=== PATIENT | male | born 1965 | race Caucasian/White ===

== ENCOUNTER 2025-01-15 18:16 | Outpatient (REF) | payer OTHER, SELFPAY ==
[2025-01-15 18:36] LABS: Appearance Urine Clear; Color Urine Yellow; Glucose Urine UA >=1000 mg/dL (Negative); Leukocyte Esterase Urine Negative (Negative); Nitrite Urine Negative (Negative); PH 7.5 (5.0-9.0); Specific Gravity - Urine >= 1.030 (1.005-1.025); UMIC TRIGGER UACC YES; Urine Blood Negative (Negative); Urine Ketones 15 mg/dL (Negative); Urine Protein Negative (Neg-Trace)
[2025-01-15 18:42] LABS: Bacteria Urine None Seen (None Seen); Hyaline Casts Urine 0-2 /LPF (0-2); RBC Urine 0-2 /HPF (0-2); Squamous Epithelial Cell Urine 0-2 /HPF (0-2); WBC Urine 0-5 /HPF (0-5)
== END 2025-01-15 18:17 | disposition home or self-care (01) ==
LOC: HO.HHCLNP 18:16
PROVIDERS: Visit Provider Student in an Organized Health Care Education/Training Program
DX: R30.0 Dysuria (principal)
CPT/HCPCS: 81001

== ENCOUNTER 2025-05-14 09:34 | Outpatient (REF) | payer OTHER, SELFPAY ==
--- OUTSIDE RECORDS SUMMARY | 2025-05-14 11:02 | XMS_ITS | Encounter Summary ---
Author Organization [employer] Address [address] [place] [address] [address] [place] [address] Care Team Providers Care Service Captain Name Role Phone Iliana Oquendo MD Primary Care Pro vider Reason for Visit * Reason Onset Date Comments Appointment Request 10/03/2024 Encounter Details Date Type Department Care Team ([facility] st Contact Info) Description 10/03/2024 Telephone [facility] MEDICINE [address] [place], [place] [phone] Mark Harrison MD [address] [place], [place] [phone] Appointment Request Social History Tobacco Use Types Packs/Day Years Used Date Smoking Tobacco: Never Assessed Sex and Gender Information Value Date Recorded Sex Assigned at Male 01/14/2025 12:28 PM EDT Legal Sex Male 5:35 PM EDT Gender Identity Male 01/15/2025 8:57 AM EDT Sexual Orientation Straight 01/15/2025 8: 57 AM EDT documented as of this encounter Miscellaneous Notes * Telephone Encounter - Mar Santamaria - 10/07/2024 8:32 AM EDT Patient added to [facility] New Patient wait list as 10-07-24 * Telephone Encounter - Yovanny Alfaro - 10/03/2024 3:49 PM EST TC from caller requesting NEW PATIENT visit . DX : Hyperglycemia Influenza A Medical Concern: Uncontrolled Diabetes Insurance name : [employer] Location : No prefrence Demographic information updated Contact pt at [phone] documented in this encounter Plan of Treatment Upcoming Encounters Date Type Department Care Team (Late st Contact Info) Description 05/22/2025 9:30 AM EDT Office Visit [facility] MEDICINE [address] [place] [address] [phone] Iliana Oquendo MD [address] [place] [address] [phone] documented as of this encounter Visit Diagnoses Not on filedocumented in this encounter Care Teams Service Captain Relationship Specialty Start Date End Date Iliana Oquendo MD [address] [place] [address] [phone] PCP - General Internal Medicine 01/15/25 documented as of this encounter
--- OUTSIDE RECORDS SUMMARY | 2025-05-14 11:02 | XMS_ITS | Clinical Summary ---
Author Organization [employer] Address [address] [facility] 7t [place] [address] Care Team Providers Care Hospice Executive Director Name Role Phone Iliana Oquendo MD Primary Care Pro vider Allergies No known active allergies Medications * This document contains information received from the source organization and may not represent a complete record from that organization. Insulin Pen Needle (pen needle 12/13 ) 31G X 8 mm misc Use as instructed 100 each 12 5 01/16/20 26 Active insulin lispro (HumaLOG) 100 UNIT/ML injection For glucose: > 150 to 200 2 units, 201 to 250 4u, 251 to 300 6u ,more than 300 8 u 1 each 3 5 Active glucose blood (FreeStyle Precision Matthew Test) test strip Use to test blood sugar 4 times a day 100 each 5 03/19/20 26 Active Continuous Glucose Sensor (FreeStyle Estrellita 3 Plus Sensor) misc 1 each every 15 days. Apply 1 every 15 days as directed for CGM Use to test blood sugar 4 times a day 2 each 5 Active Continuous Glucose Larriman Helper (FreeStyle Estrellita 3 [place]) device 1 each Once per day. Use as directed for CGM-Use to test blood sugar 4 times a day 1 each 5 Active FreeStyle lancets 1 each by Other route 4 times daily. 100 each 5 5 03/19/20 26 Active Alcohol Swabs (Alcohol Pads) 70 % pads Use to test blood sugar 4 times a day 100 each 5 Active metFORMIN (Glucophage) 500 MG tablet Take 1 tablet (500 mg) by mouth with breakfast and with evening meal. 180 tablet Active atorvastatin (Lipitor) 20 MG tablet Take 1 tablet (20 mg) by mouth Once per day. 90 tablet 5 03/19/20 26 Active insulin glargine (Lantus) 100 UNIT/ML pen Inject 20 Units under the skin in the morning. 3 mL 3 5 03/19/20 26 Active clotrimazole-be tamethasone (Lotrisone) cream Apply topically 2 times daily for 28 days. 15 g 5 04/16/20 25 Active Problems Problem Noted Date Diagnosed Date HLD (hyperlipidemia) 03/19/2025 Diabetes mellitus type 2, insulin dependent 12/29 Health care maintenance 01/16/2025 Dermatitis 01/16/2025 Depression with anxiety 01/16/2025 History of tobacco use 01/16/2025 Moderate major depression (CMS/HCC) 01/15/2025 Assessment & Plan (01/17/2025 2:19 PM EDT): During [facility] Consult Juan Jose presenting with depressed mood, Tearful, crying spells , hopelessness, irritable mood, loss of interests/pleasure , sense of isolation/loneliness , isolating, changes in sleep difficulty falling asleep and difficulty staying asleep , fatigue/loss of energy, worthlessness; for a period of 6-12 mo, for most or all symptoms in the context of financial concern, illness or family illness, and housing. Juan Jose reported his depression is baseline and shared he successfully overcame substance misuse in the past. Currently, he is facing acute personal stressors (lack of housing and medical condition worsening) which is leading to an increase of sxs. Pt declined services at this time. Information provided for [facility] centers and [facility] department in case patient changes his mind. History of substance use disorder 01/15/2025 Assessment & Plan (01/17/2025 2:19 PM EDT): During [facility] Consult Juan Jose presenting with depressed mood, Tearful, crying spells , hopelessness, irritable mood, loss of interests/pleasure , sense of isolation/loneliness , isolating, changes in sleep difficulty falling asleep and difficulty staying asleep , fatigue/loss of energy, worthlessness; for a period of 6-12 mo, for most or all symptoms in the context of financial concern, illness or family illness, and housing. Juan Jose reported his depression is baseline and shared he successfully overcame substance misuse in the past. Currently, he is facing acute personal stressors (lack of housing and medical condition worsening) which is leading to an increase of sxs. Pt declined services at this time. Information provided for [facility] centers and [facility] department in case patient changes his mind. Housing insecurity 01/15/2025 Resolved Problems Problem Noted Date Diagnosed Date Resolved Date Abdominal pain 01/16/2025 03/19/2025 Dysuria 01/16/2025 03/19/2025 Hyperglycemia 09/30/2024 03/19/2025 Encounters Date Type Department Care Team Description 04/15/2025 Telephone [facility] MEDICINE [address] [place] [phone] Angie Caceres RNcook boat 04/11/[address] [phone] Iliana Oquendo MD Medication Question 04/02/[address] [phone] Iliana Oquendo MD Prior Authorization 03/28/[address] [phone] Iliana Oquendo MD Prior Authorization (Insulin lispro) 03/19/2025 9:00 AM EDT Office Visit [address] [phone] Iliana Oquendo MD Hyperlipidemia, unspecified hyperlipidemia type (Primary Dx); Encounter for immunization; Type 2 diabetes mellitus without complication, with long-term current use of insulin ([facility]); Dietary counseling; Exercise counseling; Diabetes mellitus type 2, insulin dependent ([facility]); Health care maintenance; Dermatitis 03/19/[address] [phone] Iliana Oquendo MD Call Back Request 03/19/2025 Travel 03/18/2025 Telephone [facility] MEDICINE [address] [place] [address] Iliana Oquendo MD Chart Prep 03/18/2025 Telephone [facility] MEDICINE [address] [facility] [place] [address] Iliana Oquendo MD chart prep from Last 3 Months Immunizations Immunization Administration Dates Next Due Influenza injectable quadrivalent preservative f ree 05/19/2015 Influenza, seasonal, injectable, preservative fr ee 10/02/2024 Pneumococcal Conjugate PCV 20 03/19/2025 Tdap 01/15/2025,05/19/2015 Family History Medical History Relation Name Comments Prostate cancer Father Liver cancer Maternal Grandmother Thyroid disease Mother DM2 Paternal Grandmother Relation Name Status Comments Father Maternal Grandmother Mother Paternal Grandmother Social History Tobacco Use Types Packs/Day Years Used Date Smoking Tobacco: Former Cigarettes Passive Smoke Exposure: Never Smokeless Tobacco: Never Tobacco Cessation:Counseling Given: Not Answered Comments:Started smoking 16 y until his 37 y of age -smoked for 21 years and stopped now 22 years . Used to smoke 1 PQT a year Calc 21 PAQ a year, given stopped > 15 y ago no rec for lung ca screening Alcohol Use Standard Drinks/Week Comments Not Currently 0 (1 standard drink = 0.6 oz pur e alcohol) Depression Answer Date Recorded Patient Health Questionnaire-9 Score 10 01/15/2025 Patient Health Questionnaire-9 Score 10 01/15/2025 Last PHQ-9: Questionnaire Data Not on file 0 01/15/2025 Housing Stability Answer Date Recorded What is your housing situation today? I have darlene gaytan 01/15/[address] you li ve. Do you have problems with any of the following? None of the above 01/15/2025 Food Insecurity Answer Date Recorded Within the past 12 months, y ou worried that your food would run out before you got money to buy more: Never True 01/15/2025 Within the past 12 months,th e food you bought just didn't last and you didn't have enough money to get more: Never True Transportation Answer Date Recorded In the past 12 months, has l ack of transportation kept you from medical appts, meetings, work or from getting things needed for daily living? No 01/15/2025 Utilities Answer Date Recorded In the past 12 months, has t he electric, gas, oil or water company threatened to shut off services in your home? No 01/15/2025 Depression Answer Date Recorded Patient Health Questionnaire-2 Score 3 01/15/2025 Internet Access Answer Date Recorded Internet Access Q1 Yes 01/15/2025 Internet Access Q2 Not on file 01/15/2025 Sex and Gender Information Value Date Recorded Sex Assigned at Male 01/14/2025 12:28 PM EDT Legal Sex Male 5:35 PM EDT Gender Identity Male 01/15/2025 8:57 AM EDT Sexual Orientation Straight 01/15/2025 8: 57 AM EDT Last Filed Vital Signs Vital Sign Reading Time Taken Comments Blood Pressure 126/74 03/19/2025 9:07 AM EDT Pulse 82 03/19/2025 9:07 AM EDT Temperature 36.2 C (97.1 F) 03/19/2025 9:07 AM EDT Respiratory Rate 20 03/19/2025 9:07 AM EDT Oxygen Saturation 100% 03/19/2025 9:07 AM EDT Inhaled Oxygen Concentration - - Weight 73.8 kg (162 lb 9.6 oz) 03/19/2025 9:07 A M EDT Height 170.2 cm (5' 7 ) 03/19/2025 9:07 AM EDT Body Mass Index 25.47 03/19/2025 9:07 AM EDT Plan of Treatment Upcoming Encounters Date Type Department Care Team (Late st Contact Info) Description 05/22/2025 9:30 AM EDT Office Visit [facility] MEDICINE [address] [place] [phone] Iliana Oquendo MD [address] [place] [address] Health Maintenance Due Date Last Done Comments CT Colonography 1965 Colonoscopy 1965 Colorectal Cancer Screening 1965 FIT DNA/Cologuard 1965 FIT 1965 FOBT 1965 HIV Screening 1965 Lipid Panel 1965 Sigmoidoscopy 1965 Diabetes: Foot Exam 1975 Eye Exam 1975 Hepatitis C Screening 1983 Diabetes: Urine Protein Screening 1984 Hepatitis B Vaccines (1 of 3 - 19+ 3-dose series) 1984 Zoster Vaccines (1 of 2) 2015 COVID-19 Vaccine (1 - 2023-2 5 season) 2025 Influenza Vaccine (#1) 2025 , 05/19/2015 Diabetes: Hemoglobin A1C 06/19/2025 025, 02/21/2025, 09/30/2024 Depression Monitoring 07/17/2025 01/15/2025 , 01/15/2025 Alcohol/Substance Use Screening 01/15/2026 01/15/2025 Disability Screening 01/15/2026 01/15/2025 SDOH Screening 01/15/2026 01/15/2025 Tobacco Screening 03/19/2026 03/19/2025 DTaP/Tdap/Td Vaccines (3 - T d or Tdap) 01/15/2035 01/15/2025, 05/19/2015 RSV Patients and Patients Aged 60 years or older (1 - 1-dose 75+ series) 2040 Pneumococcal Vaccine: 50+ Years Completed 03/19/2025 HIB Vaccines Aged Out No longer eligi ble based on patient's age to complete this topic HPV Vaccines Aged Out No longer eligi ble based on patient's age to complete this topic Hepatitis A Vaccines Aged Out No long er eligible based on patient's age to complete this topic IPV Vaccines Aged Out No longer eligi ble based on patient's age to complete this topic Meningococcal B Vaccine Aged Out No l onger eligible based on patient's age to complete this topic Meningococcal Vaccine Aged Out No deloris tanya eligible based on patient's age to complete this topic RSV under 20 months Aged Out No longe r eligible based on patient's age to complete this topic Rotavirus Vaccines Aged Out No longer eligible based on patient's age to complete this topic Procedures Procedure Name Priority Date/Time Associated Diagnosis Comments ECG 12-LEAD Routine 03/19/2025 10:16 AM EDT Type 2 diabetes mellitus without complication, with long-term current use of insulin ([facility]) POCT GLYCATED HEMOGLOBIN, TOTAL Routine 03/19/2025 9:50 AM EDT Type 2 diabetes mellitus without complication, with long-term current use of insulin ([facility]) POCT GLUCOSE Routine 03/19/2025 9:49 AM EDT Type 2 diabetes mellitus without complication, with long-term current use of insulin ([facility]) from Last 3 Months Results * ECG 12 lead (03/19/2025 10:16 AM EDT) Narrative Iliana Oquendo MD - 03/19/2025 10:16 AM EDT -EKG today 02/2025 For baseline : HR 74, NSR,QT 380, no ischemic findings, lead aVL not able to be seen correctly Iliana Marion MD ECG ORDERABLES F inal Result * (ABNORMAL) POCT HGB A1C (03/19/2025 9:50 AM EDT) Hemoglobin A1C 10.4(A) 4.0 - 5.7 % QC Media Lot # [id number] Lot# Expiration Date [id number] Blood 03/19/2025 9:50 AM EDT Iliana Marion MD POINT OF CARE CARL T ENTER/EDIT ORDERABLES Final Result * POCT Glucose (03/19/2025 9:49 AM EDT) Glucose Blood, POC 150 60 - 200 mg/dL QC Media Lot # [id number] Lot# Expiration Date [id number] Blood Capillary blood specimen / Unknown 03/19/2025 9:49 AM EDT Iliana Marion MD POINT OF CARE CARL T ENTER/EDIT ORDERABLES Final Result from Last 3 [place] [id number] [facility] [place] [phone] [place] [phone] [place] [phone] Care Teams Hospice Executive Director Relationship Specialty Start Date End Date Iliana Oquendo MD [address] [place] [phone] PCP - General Internal Medicine 01/15/25
--- OUTSIDE RECORDS SUMMARY | 2025-05-14 11:02 | XMS_ITS | Encounter Summary ---
Author Organization [employer] Address [address] [place] [address] 7 [place] [address] Care Team Providers Care Occupational Therapy Supervisor Name Role Phone Iliana Oquendo MD Primary Care Pro vider Encounter Details Date Type Department Care Team (Latest Contact Info) Description 05/14/2020 Abstract [facility] CONVERSIONS Dental, Provider, DDS Social History Tobacco Use Types Packs/Day Years Used Date Smoking Tobacco: Never Assessed Sex and Gender Information Value Date Recorded Sex Assigned at Male 01/14/2025 12:28 PM EDT Legal Sex Male 5:35 PM EDT Gender Identity Male 01/15/2025 8:57 AM EDT Sexual Orientation Straight 01/15/2025 8: 57 AM EDT documented as of this encounter Plan of Treatment Upcoming Encounters Date Type Department Care Team (Late st Contact Info) Description 05/22/2025 9:30 AM EDT Office Visit [facility] MEDICINE [address] [place] [phone] Iliana Oquendo MD [address] [place] [phone] documented as of this encounter Visit Diagnoses Not on filedocumented in this encounter Care Teams Occupational Therapy Supervisor Relationship Specialty Start Date End Date Iliana Oquendo MD [address] [place] [phone] PCP - General Internal Medicine 01/15/25 documented as of this encounter
--- OUTSIDE RECORDS SUMMARY | 2025-05-14 11:02 | XMS_ITS | Clinical Summary ---
Author Organization [facility] Address [address] [facility] [address] [place] [phone] Phone Care Team Providers Care Analyst Business Analysis Name Role Phone Pcp, Unknown Primary Care Provider Unavailabl e Allergies No known active allergies Medications insulin glargine 100 unit/mL (3 mL) InPn injection pen Inject 5 Units under the skin daily. 3 mL 5 Active blood-glucose Misc meter FreeStyle brand glucometer 1 each 5 Active GLUCOSE BLOOD test strip Shoopi[employer]Dream D[employer] brand test strips. Test up to 4 times a day, as directed. 200 strip 5 Active lancets Misc Test up to 4 times a day, as directed. 200 each 5 Active alcohol PadM Use 4 times a day, as directed. 200 each 5 Active metFORMIN (GLUCOPHAGE) 500 MG tablet Take 1 tablet (500 mg total) by mouth 2 (two) times a day with meals. 60 tablet 2 5 Active insulin lispro (ADMELOG, HUMALOG) 100 unit/mL injection pen For glucose: > 150 to 200 2 units, 201 to 250 4u, 251 to 300 6u ,more than 300 8 u 5 Active FREESTYLE MICHELLE 3 PLUS SENSOR DeviIndication s:Type 2 diabetes mellitus with hyperglycemia, with long-term current use of insulin 1 Application by Miscellaneous route every 15 (fifteen) days. 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 1 each 5 Active insulin pen needles, disposable, 31 gauge x 12/13 NdleIndication s:Type 2 diabetes mellitus with hyperglycemia, with long-term current use of insulin 1 each by Miscellaneous route 4 (four) times a day before meals and nightly. 400 each 3 5 Active Active Problems Problem Noted Date Diagnosed Date Type 2 diabetes mellitus wit h hyperglycemia, with long-term current use of insulin 02/20/2025 Assessment & Plan (02/20/2025 10:26 AM EDT): Uncontrolled last hemoglobin A1c was 17.5% I requested repeat hemoglobin A1c lipid panel urine microalbumin creatinine ratio. I am not changing his regimen because I do not have any glycemic levels. He does have a meter freestyle but states he ran out of strips. He requested freestyle michelle CGM and I prescribed this. I am also checking elda antibodies because he lost a significant amount of weight and his BMI is 24 so we should be suspicious that he may have type 1 diabetes. His mother is hypothyroid and the most likely causes Nicol's thyroiditis so he may have family history of autoimmune disease. Influenza A 10/01/2024 Assessment & Plan (10/01/2024 9:37 AM EST): Patient tests positive for influenza A. His reason for presenting last night were cough headache body aches cramping in the legs weakness and lightheadedness. He has not had any hypoxia Hyperglycemia 09/30/2024 Assessment & Plan (10/01/2024 1:11 PM EST): uncontrolled type 2 diabetes, A1c testing specimen was sent out. -On presentation blood glucose was 500, improved to 302 with IVF hydration -Patient states he is supposed to be on metformin. Has only been taking this intermittently. His prescription ran out he was taking some from a family member. He also has influenza A which is likely exacerbating hyperglycemia. He has not followed up with PCP in quite some time, does not have one scheduled and is unable to find an appointment. He does have [place] In reviewing the MAR, it does not look like he received any insulin at all so far during the inpatient stay, now glucoses are 300 after hydration. The patient is not having any difficulty eating and drinking, labs stable overnight, no acidosis, fever or hypotension. Will start metformin today, eating and drinking well Would recommend follow-up with primary care doctor Will start with metformin Case management and social work consult Addendum, remains hyperglycemic, discussed with my attending physician who recommends to add glipizide. The patient is knowledgeable and wants to take better care of himself, consider insulin if oral regimen is ineffective Assessment & Plan (09/30/2024 6:35 PM EST): -Likely uncontrolled type 2 diabetes, A1c testing unable to quantify locally, specimen was sent out. -On presentation blood glucose was 500, improved to 302 with IVF hydration -Per patient has been on metformin chronically however has not followed up with PCP in quite some time, does not have one scheduled and is unable to find an appointment. Plan: Would recommend insulin therapy at this time to achieve blood glucose goals while inpatient Initiate Lantus 10 units and moderate dose sliding scale Would recommend initiating metformin 500 mg twice daily, if tolerating would recommend increasing to 1000 mg twice daily Would recommend follow-up with primary care doctor, patient is a candidate for likely GLP-1 agonist, would not necessarily recommend SGLT2 given presentation of balanitis. Balanitis 09/30/2024 Assessment & Plan (10/01/2024 9:37 AM EST): -Uncircumcised male with whitish discharge around glans penis, consistent with likely balanitis, still with significant fungal rash of penis and abdomen Given history of uncontrolled type 2 diabetes,-this is likely a complication Plan: Would recommend oral fluconazole at this time, improved hygiene techniques, glucose control. Will add topical Outpatient follow-up with PCP Assessment & Plan (09/30/2024 6:35 PM EST): -Uncircumcised male with whitish discharge around glans penis, consistent with likely balanitis Given history of uncontrolled type 2 diabetes,-this is likely a complication Plan: Would recommend oral fluconazole at this time, improved hygiene techniques Outpatient follow-up with PCP Tinea corporis 09/30/2024 Assessment & Plan (10/01/2024 9:37 AM EST): Suspect tenia corporis Assessment & Plan (09/30/2024 6:35 PM EST): -Suspect tenia corporis versus versicolor daughter abdomen, also likely secondary complication to hyperglycemia and type 2 diabetes Plan: Initiate miconazole cream twice daily Encounters Date Type Department Care Team Description 02/21/2025 7:05 AM EDT - 02/21/2025 11:59 PM EDT Hospital Encounter [facility] [address] [place] [address] Cody Ford DO Discharge Disposition: Home or Self Care 02/20/2025 9:30 AM EDT Office Visit [facility] [address] [place] [address] Cody Ford, Type 2 diabetes mellitus with hyperglycemia, with long-term current use of insulin (Primary Dx) from Last 3 Months Immunizations Immunization Administration Dates Next Due INFLUENZA, SPLIT VIRUS, TRIVALENT PF 10/02/2024 Family History Medical History Relation Comments Cancer Father Thyroid disease Mother Relation Status Comments Father Mother Alive Social History Tobacco Use Types Packs/Day Years Used Date Smoking Tobacco: Former Cigarettes Passive Smoke Exposure: Never Smokeless Tobacco: Never Tobacco Cessation:Counseling Given: No Alcohol Use Standard Drinks/Week Comments Not Currently 0 (1 standard drink = 0.6 oz pur e alcohol) Education Answer Date Recorded Are you interested in more education? Not on chance e 09/30/2024 Are you concerned about learning? Not on file 09/30/2024 No 09/30/2024 No 09/30/2024 Food Answer Date Recorded Within the past 6 months we worried whether our food would run out before we got money to buy more. Never True 09/30/2024 Within the past 6 months the food we bought just didn't last and we didn't have enough money to get more. Never True Residential Stability Answer Date Recor ded What is your housing situation today? I have darlene sing 09/30/2024 How many times have you moved in the past 12 mon ths? Two or more times 09/30/2024 Paying for Meds Answer Date Recorded Do you have trouble paying for medicines? No 09/30/2024 Paying Utility Bills Answer Date Record ed Do you have trouble paying your heating or elect ricity bill? No 09/30/2024 Transportation Answer Date Recorded Has the lack of transportati on kept you from medical appointments or from getting medications? No 09/30/2024 Digital Access Answer Date Recorded No 09/30/2024 Yes 09/30/2024 Do you have reliable internet access at home? Ye s 09/30/2024 Do you have a device (e.g., phone, tablet, computer) with a working camera? Yes 09/30/2024 Intimate Partner Violence Answer Date R ecorded Are you denied basic needs s uch as food, clothing, or medical care? No 11/08/2024 In the past 12 months have y ou been in a relationship with a person who hurts, threatens, or tries to control you? No 11/08/2024 Are you denied basic needs s uch as food, clothing, or medical care? No 11/08/2024 In the past 12 months have y ou been in a relationship with a person who hurts, threatens, or tries to control you? No 11/08/2024 Sex and Gender Information Value Date Recorded Sex Assigned at Male 10/29/2018 4:11 AM EDT Legal Sex Male 4:00 AM EDT Gender Identity Male 10/29/2018 4:11 AM EDT Sexual Orientation Straight 10/29/2018 4: 11 AM EDT Last Filed Vital Signs Vital Sign Reading Time Taken Comments Blood Pressure 108/65 02/20/2025 9:27 AM EDT Pulse 73 02/20/2025 9:27 AM EDT Temperature 36.9 C (98.5 F) 11/08/2024 11:19 AM EDT Respiratory Rate 16 11/08/2024 11:19 AM EDT Oxygen Saturation 98% 02/20/2025 9:27 AM EDT Inhaled Oxygen Concentration - - Weight 69.4 kg (153 lb) 02/20/2025 9:27 AM EDT Height 168.3 cm (5' 6.25 ) 02/20/2025 9:27 AM ED T Body Mass Index 24.51 02/20/2025 9:27 AM EDT Plan of Treatment Upcoming Encounters Date Type Department Care Team (Late st Contact Info) Description 06/10/2025 9:10 AM EST Office Visit [facility] [address] [place] [address] Cody Ford DO [address] [place] [address] 07/29/2025 9:00 AM EST Nutrition [facility] [address] [place] [address] Steffany Whitley LDN [address] [facility], [address] [place] [address] Health Maintenance Due Date Last Done Comments DEPRESSION SCREENING 1977 SMOKING Hx and SMOKELESS TOBACCO SCREENING 1978 HEPATITIS C SCREENING 1983 HIV ONE-TIME SCREENING (18-6 5 YEARS) 1983 PNEUMOCOCCAL VACCINES (50+ years) (1 of 2 - PCV) 1984 COLOGUARD 2010 COLONOSCOPY 2010 COLORECTAL CANCER SCREENING 2010 FIT TEST 2010 FOBT 2010 SIGMOIDOSCOPY 2010 VIRTUAL COLONOSCOPY 2010 RSV VACCINE (1 - Risk 50-74 years 1-dose series) 2015 ZOSTER VACCINES (1 of 2) 2015 DIABETIC EYE EXAM 11/13/2024 INFLUENZA VACCINE (#1) 2025 10/02/2024 COVID-19 VACCINE (1 - 2024-2 6 season) 2025 HEMOGLOBIN A1C 05/24/2025 02/21/2025, 09/30/2024 BLOOD PRESSURE 08/23/2025 02/20/2025 LIPID PANEL 02/21/2026 02/21/2025 URINE MICROALBUMIN/CREATININ E RATIO 02/21/2026 02/21/2025 Adult Td,Tdap Booster 01/15/2035 01/15/2025 , 05/19/2015 HEPATITIS A VACCINES Aged Out No long er eligible based on patient's age to complete this topic HIB VACCINES Aged Out No longer eligi ble based on patient's age to complete this topic MENINGOCOCCAL VACCINES (ACWY) Aged Out No longer eligible based on patient's age to complete this topic MENINGOCOCCAL VACCINES (B) Aged Out N o longer eligible based on patient's age to complete this topic Medical Devices Not on file Procedures Procedure Name Priority Date/Time Associated Diagnosis Comments MICROALBUMIN/CREATIN INE RATIO, RANDOM URINE Routine 02/21/2025 7:29 AM EDT Type 2 diabetes mellitus with hyperglycemia, with long-term current use of insulin LIPID PANEL Routine 02/21/2025 7:14 AM EDT Type 2 diabetes mellitus with hyperglycemia, with long-term current use of insulin HEMOGLOBIN A1C Routine 02/21/2025 7:14 AM EDT Type 2 diabetes mellitus with hyperglycemia, with long-term current use of insulin GAD65 ANTIBODY, BLOOD Routine 02/21/2025 7:14 AM EDT Type 2 diabetes mellitus with hyperglycemia, with long-term current use of insulin from Last 3 Months Results * Microalbumin/creatinine ratio, random urine (02/21/2025 7:29 AM EDT) URINE MICROALBUMIN <1.2 0 - 2.3 mg/dL [facility] URINE CREATININE 98 mg/dL [facility] MICROALB/CRE RATIO NOT CALCULATED 0 - 20 mg/g Cre [facility] Comment:due to Microalbumin <1.2 Urine (Urine) 02/21/2025 7:2 9 AM EDT 02/21/2025 7:33 AM EDT us Cody Ford DO URINE ORDERABLES Final Result [facility] [address] [place] [address] * GAD65 antibody, blood (02/21/2025 7:14 AM EDT) GAD65 ANTIBODY 0.00 <=0.02 nmol/L [facility] MED AND PAT+ Comment: (NOTE) ADDITIONAL INFORMATION This test was developed and its performance characteristics determined by [facility] in a manner consistent with CLIA requirements. This test has not been cleared or approved by the U.S. Food and Drug Administration. Blood 02/21/2025 7:14 AM EDT 02/21/2025 7:19 AM EDT Cody Logan DO LAB BLOOD ORDERABLES Final Resul t [facility] MED AND PAT+ [address] [place] [address] * (ABNORMAL) Hemoglobin A1c (02/21/2025 7:14 AM EDT) HEMOGLOBIN A1C 10.6(H) 4.3 - 5.8 % [facility] Blood 02/21/2025 7:14 AM EDT 02/21/2025 7:19 AM EDT [facility]LES Final Resul t Performing Organization Address City/[facility]/ZIP Co de Phone Number [facility] [address] [place] [address] * (ABNORMAL) Lipid panel (02/21/2025 7:14 AM EDT) HDL 48 mg/dL [facility] Comment: Interpretation <40 mg/dL: Low HDL cholesterol (major risk factor for CHD) Greater than or equal to 60 mg/dL: High HDL cholesterol ( negative risk factor for CHD) HDL - cholesterol is affected by a number of factors, e.g. smoking, excerise, hormones, sex and age. CHOLESTEROL 207 0 - 240 mg/dL [facility] TRIGLYCERIDES 94 30 - 160 mg/dL [facility] LDL 140(H) 50 - 129 mg/dL [facility] Comment: LDL levels in terms of risk for coronary heart disease: <100 mg/dL: Optimal 100-129 mg/dL: Near or above optimal 130-159 mg/dL: Borderline high 160-189 mg/dL: High >190 mg/dL: Very High CARDIAC RISK RATIO 4.3 3.4 - 5.0 [facility] Blood 02/21/2025 7:14 AM EDT 02/21/2025 7:19 AM EDT us Cody Ford DO LAB BLOOD ORDERABLES Final Resul t [address] [address] from Last 3 Months Insurance [employer] [facility] FULL [employer] [facility] FULL HEALTH SAFETY NET FULL HE[employer] SAFETY NET FULL HEALTH SAFETY NET FULL HEALTH SAFETY NET FULL [employer] SAFETY NET FULL [facility] SAFETY NET FULL [facility] SAFETY NET FULL Advance Directives For more information, please contact: [phone] (9AM - 5PM [facility], Monday-Monday) * Full Code (Latest Code Status on File) Date Activated Date Inactivated Comments 10/01/2024 12:27 AM Question Answer Comments Code Status Confirmed With: Patient Code Status Communicated To: Inpatient Attending Care Teams Analyst Business Analysis Relationship Specialty Start Date End Date Pcp, Unknown PCP - General 11/08/24 Additional Source Comments The information contained in this document represents components of the legal health record. It is not the complete legal health record.[facility]
[2025-05-14 11:26] LABS: Hematocrit 46.8 % (42.0-52.0); Hemoglobin 16.2 g/dl (14.0-18.0); Mean Corpuscular HGB Conc 34.6 g/dl (31.0-36.0); Mean Corpuscular Hemoglobin 28.8 pg (27.0-33.0); Mean Corpuscular Volume 83.3 fL (80.0-98.0); NRBC Abs Auto 0.000 X10*3/uL (0.0-0.012); NRBC Pct Auto 0.0 /100WBC (0.0-0.2); Platelet Count 307 X10*3/uL (160-400); Red Blood Count 5.62 X10*6/uL (4.60-5.80); White Blood Count 9.6 X10*3/uL (4.8-10.8)
[2025-05-14 11:52] LABS: Microalbum/Creatinine Ratio Ur 3.3 ug/mg cr (<30)
[2025-05-14 12:02] LABS: Alanine Aminotransferase 30 U/L (0-40); Albumin Level 4.9 g/dL (3.5-5.0); Alkaline Phosphatase 113 U/L (39-117); Anion Gap 12 (12-20); Aspartate Amino Transferase 25 U/L (5-37); Blood Urea Nitrogen 13 mg/dL (9-16); Calcium 10.1 mg/dL (8.4-10.2); Carbon Dioxide 27 mmol/L (22-29); Chloride 103 mmol/L (96-108); Cholesterol 165 mg/dL (<200); Estimated Glomerular Filt Rate > 60; HDL Cholesterol 46 mg/dL (>40); Potassium 4.0 mmol/L (3.3-5.1); Sodium 138 mmol/L (135-145); Total Protein 8.6 g/dL (6.5-8.0); Triglycerides 81 mg/dL (<150)
[2025-05-14 12:20] LABS: Folate 11.5 ng/mL (> or = 4.0); Prostate Specific Antigen 2.75 ng/mL (<0.05-4.0); Vitamin B12 > 2000 pg/mL (200-900)
[2025-05-15 04:19] LABS: Syphilis Screen Nonreactive (Nonreactive)
[2025-05-15 05:15] LABS: HBS Num1 7.35 mIU/mL (0-7.99); HBc Num1 10.48 S/CO (0.00-0.79); HBsAGNum1 0.39 S/CO (0.00-0.99); HIV Num 1 0.05 S/CO (0.00-0.99); Hepatitis B Surface Antigen Negative (Negative); ~HepC Num1 0.12 S/CO (0.00-0.79); ~Hepatitis B Surface Antibody NONREACTIVE (Nonreactive); ~Hepatitis C Antibody Nonreactive (Nonreactive)
[2025-05-15 06:45] LABS: HBc Num2 10.38 S/CO; HBc Num3 10.56 S/CO
[2025-05-16 07:33] LABS: Hepatitis B Core Antibody IgM NON-REACTIVE (NON-REACTIVE)
[2025-05-16 22:18] LABS: TS Negative Control Passed; TS Panel A 2; TS Panel B 1; TS Positive Control Passed; TSpotTB Negative (Negative)
== END 2025-05-14 09:35 | disposition home or self-care (01) ==
LOC: HO.HHCL 09:34
PROVIDERS: PCP Student in an Organized Health Care Education/Training Program; Visit Provider Student in an Organized Health Care Education/Training Program
DX: Z00.00 Encounter for general adult medical examination without abnormal findings (principal); Z11.4 Encounter for screening for human immunodeficiency virus [HIV]; Z11.59 Encounter for screening for other viral diseases; Z11.1 Encounter for screening for respiratory tuberculosis; Z11.3 Encounter for screening for infections with a predominantly sexual mode of transmission
CPT/HCPCS: 36415; 80053; 80061; 82043; 82570; 82607; 82746; 83036; 84153; 84443; 85027; 86481; 86704; 86705; 86706; 86780; 86803; 87340; 87389